=== PATIENT | female | born 1960 | race Caucasian/White ===

== ENCOUNTER → 2016-06-17 | Outpatient (CLI) | payer OTHER ==
--- NOTE | 2016-06-18 11:07 | MM ---
Reason for exam: screening (asymptomatic). Last mammogram was performed 2 years and 1 month ago. History: Patient is postmenopausal and has history of breast cancer at age 32. Lumpectomy, 1993. Mastectomy of the right breast, 1993. Chemotherapy, 1993. TRAM Reconstruction of the right breast, 1993. Took hormonal contraceptives for 2 years. Took antineoplastic for 5 years. Physical Findings: A clinical breast exam by your physician is recommended on an annual basis and results should be correlated with mammographic findings. MG Screening Mammo w CAD Bilateral CC and MLO view(s) were taken. Prior study comparison: May 17, 2014, bilateral MG screening mammo w CAD. June 26, 2011, mammogram, performed at [facility]. The breast tissue is almost entirely fat. Benign calcifications. There is no discrete abnormality. No significant new findings when compared with previous films. ASSESSMENT: Benign, BI-RAD 2 RECOMMENDATION: Routine screening mammogram of both breasts in 1 year.
== END | disposition home or self-care (01) ==
LOC: RADMAMWWP 16:27
PROVIDERS: ATTEND Family Medicine
DX: Z12.31 Encounter for screening mammogram for malignant neoplasm of breast (principal)

== ENCOUNTER → 2017-11-14 | Outpatient (CLI) | payer OTHER ==
--- NOTE | 2017-11-17 11:25 | MM ---
Reason for exam: screening (asymptomatic). Last mammogram was performed 1 year and 5 months ago. History: Patient is postmenopausal and has history of breast cancer at age 32. Lumpectomy, 1993. Mastectomy of the right breast, 1993. Chemotherapy, 1993. TRAM Reconstruction of the right breast, 1993. Took hormonal contraceptives for 2 years. Took antineoplastic for 5 years. Physical Findings: A clinical breast exam by your physician is recommended on an annual basis and results should be correlated with mammographic findings. MG Screening Mammo w CAD Bilateral CC and MLO view(s) were taken. Technologist: RT Diane (R)(M) Prior study comparison: June 17, 2016, bilateral MG screening mammo w CAD. May 17, 2014, bilateral MG screening mammo w CAD. The breast tissue is almost entirely fat. Benign calcifications bilaterally. Previous mammotome biopsy in the right breast. ASSESSMENT: Benign, BI-RAD 2 RECOMMENDATION: Routine screening mammogram of both breasts in 1 year.
== END | disposition home or self-care (01) ==
LOC: RADMAMWWP 08:25
PROVIDERS: ATTEND Family Medicine
DX: Z12.31 Encounter for screening mammogram for malignant neoplasm of breast (principal)
CPT/HCPCS: 77067

== ENCOUNTER 2017-12-11 10:04 | Emergency (ER) | payer OTHER ==
[2017-12-11] MEDS ORDERED: SODIUM CHLORIDE 0.9% 500 ML 500 ML IV STA (10:34)
[2017-12-11] MEDS ORDERED: SODIUM CHLORIDE 0.9% 1,000 ML IV ONE (10:44)
[2017-12-11] MEDS ORDERED: KETOROLAC 30 MG/ML 1 ML VIAL IVP STA (10:45)
--- NOTE | 2017-12-11 10:46 | ED ---
Abdominal Pain HPI - General Chief Complaint: Abdominal Pain Stated Complaint: Abdominal pain, blood in urine Time Seen by Provider: 12/11/17 10:22 Source: patient, RN notes reviewed Mode of arrival: ambulatory Limitations: no limitations - History of Present Illness Initial Comments: 49-year-old female presents emergency Department chief complaint of right-sided abdominal pain. Patient states his started around 2:30 AM. States that he woke up out of her sleep. Patient states that she's thought she needed to have a bowel movement states that she went with no relief of her symptoms. She states nothing makes the pain feel better or worse. She denies any nausea vomiting. She has noticed some hematuria with no dysuria denies any vaginal bleeding or vaginal discharge. Patient has had prior cholecystectomy but has had no prior appendectomy. Has no history kidney stones. Patient has not taken any medications to see if it improves his symptoms. - Related Data Home Medications Medication Instructions Recorded Confirmed Aspirin 325 mg PO DAILY 10/20/15 12/11/17 Carvedilol [Coreg*] 12.5 mg PO BID 10/20/15 12/11/17 Hydrochlorothiazide 25 mg PO QAM 10/20/15 12/11/17 Lisinopril [Zestril] 5 mg PO QAM 10/20/15 12/11/17 metFORMIN HCL [Glucophage Xr] 1,000 mg PO HS 10/20/15 12/11/17 Atorvastatin [Lipitor] 80 mg PO HS 07/17/16 12/11/17 FLUoxetine HCL [PROzac] 10 mg PO DAILY 07/17/16 12/11/17 metFORMIN HCL [Metformin HCl] 500 mg PO QAM 07/17/16 12/11/17 Previous Rx's Medication Instructions Recorded Ketorolac [Toradol] 10 mg PO Q8HR #15 tab 12/11/17 Ondansetron Odt [Zofran Odt] 4 mg PO Q8HR PRN #10 tab 12/11/17 Tamsulosin [Flomax] 0.4 mg PO DAILY #7 cap 12/11/17 Allergies Allergy/AdvReac Type Severity Reaction Status Date / Time Penicillins Allergy Anaphylaxis Verified 12/11/17 12:27 Review of Systems ROS Statement: Those systems with pertinent positive or pertinent negative responses have been documented in the HPI. ROS Other: All systems not noted in ROS Statement are negative. Past Medical History Past Medical History: Cancer, Heart Failure, Diabetes Mellitus, Hyperlipidemia, Hypertension Additional Past Medical History / Comment(s): hx breast ca. pelvic pain History of Any Multi-Drug Resistant Organisms: None Reported Past Surgical History: Breast Surgery, Cholecystectomy, Heart Catheterization, Orthopedic Surgery Additional Past Surgical History / Comment(s): rt mastectomy, ORIF RT ANKLE Past Anesthesia/Blood Transfusion Reactions: Previous Problems w/ Anesthesia Additional Past Anesthesia/Blood Transfusion Reaction / Comment(s): hard time waking up Past Psychological History: No Psychological Hx Reported Smoking Status: Never smoker Past Alcohol Use History: None Reported Past Drug Use History: None Reported - Past Family History Daughter(s) Family Medical History: Cancer Additional Family Medical History / Comment(s): non hodgkins lymphoma Father Family Medical History: Deep Vein Thrombosis (DVT) General Exam Limitations: no limitations General appearance: alert, in no apparent distress Head exam: Present: atraumatic, normocephalic, normal inspection Neck exam: Present: normal inspection. Absent: tenderness, meningismus, lymphadenopathy Respiratory exam: Present: normal lung sounds bilaterally. Absent: respiratory distress, wheezes, rales, rhonchi, stridor Cardiovascular Exam: Present: regular rate, normal rhythm, normal heart sounds. Absent: systolic murmur, diastolic murmur, rubs, gallop, clicks GI/Abdominal exam: Present: soft, tenderness (Mild right lower quadrant tenderness), normal bowel sounds. Absent: distended, guarding, rebound, rigid Back exam: Absent: CVA tenderness (R), CVA tenderness (L) Skin exam: Present: warm, dry, intact, normal color. Absent: rash Course Vital Signs 12/11/17 10:12 Temperature 98.5 F Pulse Rate 78 Respiratory 20 Rate Blood Pressure 151/85 O2 Sat by Pulse 98 Oximetry Medical Decision Making - Medical Decision Making 57-year-old female presents emergency Department for right-sided abdominal pain. Patient had lab work urinalysis and CT which shows evidence of 4 mm ureteral calculi stone. Patient has normal renal function no signs of infection. She does have a lesion on her pelvis though felt not to be metastasis though she does have a history of breast cancer will follow-up for bone scan. - Lab Data Result diagrams: 12/11/17 11:15 12/11/17 11:15 Lab Results 10/12/11/17 12/11/17 Range/Units 11:15 11:15 11:15 WBC 7.4 (3.8-10.6) k/uL RBC 4.47 (3.80-5.40) m/uL Hgb 13.1 (11.4-16.0) gm/dL Hct 38.6 (34.0-46.0) % MCV 86.5 (80.0-100.0) fL MCH 29.2 (25.0-35.0) pg MCHC 33.8 (31.0-37.0) g/dL RDW 13.0 (11.5-15.5) % Plt Count 255 (150-450) k/uL Neutrophils % 69 % Lymphocytes % 23 % Monocytes % 5 % Eosinophils % 2 % Basophils % 0 % Neutrophils # 5.1 (1.3-7.7) k/uL Lymphocytes # 1.7 (1.0-4.8) k/uL Monocytes # 0.3 (0-1.0) k/uL Eosinophils # 0.1 (0-0.7) k/uL Basophils # 0.0 (0-0.2) k/uL Sodium 140 (137-145) mmol/L Potassium 3.9 (3.5-5.1) mmol/L Chloride 104 (98-107) mmol/L Carbon Dioxide 26 (22-30) mmol/L Anion Gap 10 mmol/L BUN 19 H (7-17) mg/dL Creatinine 0.48 L (0.52-1.04) mg/dL Est GFR (CKD-EPI)AfAm >90 (>60 ml/min/1.73 sqM) Est GFR (CKD-EPI)NonAf >90 (>60 ml/min/1.73 sqM) Glucose 132 H (74-99) mg/dL Calcium 9.8 (8.4-10.2) mg/dL Total Bilirubin 0.7 (0.2-1.3) mg/dL AST 26 (14-36) U/L ALT 39 (9-52) U/L Alkaline Phosphatase 90 (38-126) U/L Total Protein 7.1 (6.3-8.2) g/dL Albumin 4.2 (3.5-5.0) g/dL Amylase 71 (30-110) U/L Lipase 235 (23-300) U/L Urine Color Yellow Urine Appearance Clear (Clear) Urine pH 5.5 (5.0-8.0) Ur Specific Denhoff 1.016 (1.001-1.035) Urine Protein 1+ H (Negative) Urine Glucose (UA) Negative (Negative) Urine Ketones Negative (Negative) Urine Blood Large H (Negative) Urine Nitrite Negative (Negative) Urine Bilirubin Negative (Negative) Urine Urobilinogen <2.0 (<2.0) mg/dL Ur Leukocyte Esterase Negative (Negative) Urine RBC >182 H (0-5) /hpf Urine WBC 2 (0-5) /hpf Ur Squamous Epith Cells 1 (0-4) /hpf Urine Mucus Rare H (None) /hpf Disposition Clinical Impression: Ureteral calculi, Right flank pain Disposition: HOME SELF-CARE Condition: Stable Instructions: Kidney Stones (ED) Additional Instructions: Please return to the Emergency Department if symptoms worsen or any other concerns. Prescriptions: Ketorolac [Toradol] 10 mg PO Q8HR #15 tab Ondansetron Odt [Zofran Odt] 4 mg PO Q8HR PRN #10 tab PRN Reason: Nausea Tamsulosin [Flomax] 0.4 mg PO DAILY #7 cap Is patient prescribed a controlled substance at d/c from ED?: No Referrals: Amanda Pradhan DO [Primary Care Provider] - 1-2 days Deandre Harkins MD [STAFF PHYSICIAN] - 1-2 days Time of Disposition: 12:46
[2017-12-11 11:32] LABS: Basophils % (A) 0 %; Eosinophils # (A) 0.1 k/uL (0-0.7); Eosinophils % (A) 2 %; HCT 38.6 % (34.0-46.0); HGB 13.1 gm/dL (11.4-16.0); Lymphocytes # (A) 1.7 k/uL (1.0-4.8); Lymphocytes % (A) 23 %; MCH 29.2 pg (25.0-35.0); MCHC 33.8 g/dL (31.0-37.0); MCV 86.5 fL (80.0-100.0); Mean Platelet Volume 7.2; Monocytes # (A) 0.3 k/uL (0-1.0); Monocytes % (A) 5 %; Neutrophils # (A) 5.1 k/uL (1.3-7.7); Neutrophils % (A) 69 %; Platelet Count 255 k/uL (150-450); RBC 4.47 m/uL (3.80-5.40); WBC 7.4 k/uL (3.8-10.6)
[2017-12-11 11:45] LABS: ALT 39 U/L (9-52); AST 26 U/L (14-36); Albumin 4.2 g/dL (3.5-5.0); Alkaline Phosphatase 90 U/L (38-126); Amylase 71 U/L (30-110); Anion Gap 10 mmol/L; Blood Urea Nitrogen 19 mg/dL (7-17); Calcium 9.8 mg/dL (8.4-10.2); Carbon Dioxide 26 mmol/L (22-30); Chloride 104 mmol/L (98-107); Glucose 132 mg/dL (74-99); Lipase 235 U/L (23-300); Potassium 3.9 mmol/L (3.5-5.1); Sodium 140 mmol/L (137-145); Total Bilirubin 0.7 mg/dL (0.2-1.3); Total Protein 7.1 g/dL (6.3-8.2)
[2017-12-11 11:54] LABS: Appearance,Urine Clear (Clear); Bilirubin,Urine Negative (Negative); Blood,Urine Large (Negative); Color,Urine Yellow; Glucose,Urine (UA) Negative (Negative); Ketones,Urine Negative (Negative); Leukocyte Esterase,Urine Negative (Negative); Mucus,Urine Rare /hpf; Nitrite,Urine Negative (Negative); PH, Urine 5.5 (5.0-8.0); Protein,Urine 1+ (Negative); RBC,Urine >182 /hpf (0-5); Specific Gravity,Urine 1.016 (1.001-1.035); Squamous Epithelial Cell,Urine 1 /hpf (0-4); Urobilinogen,Urine <2.0 mg/dL (<2.0); WBC,Urine 2 /hpf (0-5)
--- NOTE | 2017-12-11 12:00 | XR ---
EXAMINATION TYPE: XR KUB DATE OF EXAM: 12/11/2017 CLINICAL DATA: 57-year-old female with abdominal pain, PHH COMPARISON: None FINDINGS: Lung bases are clear. Surgical clips are noted in the right upper quadrant, left mid abdomen, and in the right paramedian l ower abdomen. No evidence for free intraperitoneal air. No dilated small bowel or air-fluid levels. Scattered air and stool seen throughout the colon extendi ng distally into the rectum. Mild to moderate overall stool burden. Possible 5 mm left renal calculus versus bowel content. IMPRESSION: 1. Mild to moderate stool burden.No evidence of bowel obstruction or free intraperitoneal air. 2. Possible 5 mm nonobstructive left renal calculus.
--- NOTE | 2017-12-11 12:41 | CT ---
EXAMINATION TYPE: CT abdomen pelvis wo con DATE OF EXAM: 12/11/2017 COMPARISON: None HISTORY: Blood in urine CT DLP: 694.8 mGycm Automated exposure control for dose reduction was used. TECHNIQUE: Helical acquisition of images was performed from the lung bases through the pelvis. FINDINGS: LUNG BASES: There is partial visualization of bibasilar atelectasis and coronary calcifications as we ll as trace pericardial fluid and a small hiatal hernia. LIVER/GB: No significant abnormality is appreciated within the unenhanced liver. Gallbladder is eithe r significantly contracted or surgically absent and not visualized. PANCREAS: No significant abnormality is seen. SPLEEN: No significant abnormality is seen. ADRENALS: No significant abnormality is seen. KIDNEYS: There are multiple bilateral renal calculi. On the left there are at least 5 calculi with th e largest in the midpole measuring up to 7 mm and on the right there are at least 2 renal calculi jadiel suring 1 to 2 mm each. Additionally there is a proximal right ureteral calculus creating obstructive uropathy and mild right hydroureteronephrosis and perinephric fat stranding. No perinephric fluid col lection is seen. This obstructing calculus measures 4 mm. No urinary bladder calculi are present. Uri nary bladder is decompressed. ADENOPATHY: No greater than 1 cm short axis with nodes are seen within the abdomen or pelvis. OSSEOUS STRUCTURES: Moderate multilevel degenerative change of the spine. Nonspecific sclerosis of t he left iliac bone on image 111 measures a maximum dimension of 1.9 cm. There is a grade 1 anterolist hesis of L4 and L5. BOWEL: Scattered colonic diverticula are seen throughout the entirety of the colon. Moderate amount retained colonic stool is seen. No dilated large or small bowel to suggest obstruction. Appendix is a ir-filled and within normal limits. OTHER: There are multiple metallic densities along the abdominal wall and one within the peritoneum o n image 63, from prior TRAM flap reconstruction as the left rectus abdominis is absent. Abdominal aorta is of normal course and caliber with moderate calcific atheromatous changes. There ar e small bilateral fat filled inguinal hernias. No abutting bowel. IMPRESSION: 1. MILD RIGHT HYDROURETERONEPHROSIS SECONDARY TO AN OBSTRUCTING PROXIMAL URETERAL 4 MM CALCULUS. ROSE TIONAL BILATERAL NONOBSTRUCTING RENAL CALCULI MEASURE UP TO 7 MM ON THE LEFT. 2. NONSPECIFIC SCLEROTIC LESION OF THE LEFT ILIAC BONE. ALTHOUGH METASTASIS IS NOT SUSPECTED GIVEN TH E PATIENT'S REMOTE HISTORY OF BREAST CANCER BONE SCAN COULD BE PERFORMED OR CORRELATION WITH ANY PRIO R OUTSIDE IMAGING TO DETERMINE STABILITY.
[2017-12-11] MEDS ORDERED: ACET/COD 300 MG/30 MG STARTER PACK 6 TAB BTL PO STA (12:45)
[2017-12-11 13:28] VITALS: BP 146/86; PULSE 66; RESP 18; TEMP 97.8
== END 2017-12-11 13:28 | disposition home or self-care (01) ==
LOC: EC 10:04
DX: N20.1 Calculus of ureter (principal); R19.07 Generalized intra-abdominal and pelvic swelling, mass and lump; E78.5 Hyperlipidemia, unspecified; I11.0 Hypertensive heart disease with heart failure; I50.9 Heart failure, unspecified; E11.9 Type 2 diabetes mellitus without complications; Z88.0 Allergy status to penicillin; Z79.82 Long term (current) use of aspirin; Z79.84 Long term (current) use of oral hypoglycemic drugs; Z79.899 Other long term (current) drug therapy; Z85.3 Personal history of malignant neoplasm of breast; Z90.11 Acquired absence of right breast and nipple; Z90.49 Acquired absence of other specified parts of digestive tract
CPT/HCPCS: 99284; 96374; 96361; 36415; 80053; 82150; 83690; 85025; 81001; 87086; 74018; 74176; J1885

== ENCOUNTER 2018-01-02 06:57 | Emergency (ER) | payer OTHER ==
[2018-01-02 07:02] VITALS: TEMP 98.5
[2018-01-02] MEDS ORDERED: SODIUM CHLORIDE 0.9% 500 ML 500 ML IV ONE (07:31)
[2018-01-02] MEDS ORDERED: DEXAMETHASONE SOD PHOSPHATE 10 MG/ML 1 ML VIAL IV STA (07:31)
--- NOTE | 2018-01-02 07:34 | ED ---
General Adult HPI - General Chief complaint: Allergic Reaction Stated complaint: Allergic Reaction, difficulty breathing Time Seen by Provider: 01/02/18 07:05 Source: patient, family, RN notes reviewed, old records reviewed Mode of arrival: ambulatory Limitations: no limitations - History of Present Illness Initial comments: 57-year-old female presents for evaluation of sore throat and swelling. Patient states she had a mild sore throat yesterday, this progressed today to sore throat with some difficulty swallowing. She also has had nasal congestion. Mild cough. No fever or chills. Patient has past medical history of diabetes. She thought this was related to her Flomax which she took last night. However she's been on this medication for several months. No lip or tongue swelling. - Related Data Home Medications Medication Instructions Recorded Confirmed Aspirin 325 mg PO DAILY 10/20/15 01/02/18 Carvedilol [Coreg*] 12.5 mg PO BID 10/20/15 01/02/18 Hydrochlorothiazide 25 mg PO QAM 10/20/15 01/02/18 Lisinopril [Zestril] 5 mg PO QAM 10/20/15 01/02/18 Atorvastatin [Lipitor] 80 mg PO HS 07/17/16 01/02/18 FLUoxetine HCL [PROzac] 10 mg PO HS 07/17/16 01/02/18 metFORMIN HCL [Metformin HCl] 500 mg PO QAM 07/17/16 01/02/18 Tamsulosin [Flomax] 0.4 mg PO HS 01/02/18 01/02/18 metFORMIN HCL 1,000 mg PO HS 01/02/18 01/02/18 Previous Rx's Medication Instructions Recorded Loratadine [Claritin] 10 mg PO DAILY #30 tab 01/02/18 methylPREDNISolone Dose Pack 4 mg PO DIRECTED #21 package 01/02/18 [Medrol Dose Pack] Allergies Allergy/AdvReac Type Severity Reaction Status Date / Time Penicillins Allergy Anaphylaxis Verified 01/02/18 08:16 Review of Systems ROS Statement: Those systems with pertinent positive or pertinent negative responses have been documented in the HPI. ROS Other: All systems not noted in ROS Statement are negative. Past Medical History Past Medical History: Cancer, Heart Failure, Diabetes Mellitus, Hyperlipidemia, Hypertension Additional Past Medical History / Comment(s): hx breast ca. pelvic pain History of Any Multi-Drug Resistant Organisms: None Reported Past Surgical History: Breast Surgery, Cholecystectomy, Heart Catheterization, Orthopedic Surgery Additional Past Surgical History / Comment(s): rt mastectomy, ORIF RT ANKLE Past Anesthesia/Blood Transfusion Reactions: Previous Problems w/ Anesthesia Additional Past Anesthesia/Blood Transfusion Reaction / Comment(s): hard time waking up Past Psychological History: No Psychological Hx Reported Smoking Status: Never smoker Past Alcohol Use History: None Reported Past Drug Use History: None Reported - Past Family History Daughter(s) Family Medical History: Cancer Additional Family Medical History / Comment(s): non hodgkins lymphoma Father Family Medical History: Deep Vein Thrombosis (DVT) General Exam Limitations: no limitations General appearance: alert, in no apparent distress Head exam: Present: atraumatic, normocephalic Eye exam: Present: normal appearance, PERRL ENT exam: Present: other (Pharyngeal erythema and some swelling bilaterally, no tonsillar exudate. No asymmetry to the oropharynx. Uvula midline) Neck exam: Present: lymphadenopathy (Bilateral anterior cervical) Respiratory exam: Present: normal lung sounds bilaterally. Absent: respiratory distress, wheezes Cardiovascular Exam: Present: regular rate, normal rhythm GI/Abdominal exam: Present: soft. Absent: distended, tenderness Extremities exam: Present: normal inspection, normal capillary refill. Absent: pedal edema Neurological exam: Present: alert, oriented X3 Psychiatric exam: Present: normal affect, normal mood Skin exam: Present: warm, dry, intact. Absent: cyanosis, diaphoretic Course Vital Signs 01/02/18 06:58 Temperature 98.5 F Pulse Rate 69 Respiratory 20 Rate Blood Pressure 146/88 O2 Sat by Pulse 96 Oximetry - Reevaluation(s) Reevaluation #1: 01/02/18 09:52 Patient's symptoms improved, sore throat improved, no respiratory distress, stable vitals. Medical Decision Making - Medical Decision Making 49-year-old female with sore throat and nasal congestion. Patient initially thought sore throat may be related to Flomax. This does not seem ALLERGIC in nature. This seems like upper respiratory tract infection. She does have significant bilateral oral pharyngeal erythema, uvula is midline. No stridor. No respiratory distress. No drooling. Lungs are clear. Laboratory studies were obtained, these are normal, normal CBC, normal CMP. She will be started on Medrol Dosepak and Claritin. She will return with development of fever, or worsening symptoms. - Lab Data Result diagrams: 01/02/18 07:45 01/02/18 07:45 Lab Results 01/02/18 01/02/18 Range/Units 07:45 07:45 WBC 4.7 (3.8-10.6) k/uL RBC 4.39 (3.80-5.40) m/uL Hgb 12.6 (11.4-16.0) gm/dL Hct 38.0 (34.0-46.0) % MCV 86.5 (80.0-100.0) fL MCH 28.6 (25.0-35.0) pg MCHC 33.1 (31.0-37.0) g/dL RDW 13.1 (11.5-15.5) % Plt Count 278 (150-450) k/uL Neutrophils % 60 % Lymphocytes % 29 % Monocytes % 6 % Eosinophils % 3 % Basophils % 0 % Neutrophils # 2.8 (1.3-7.7) k/uL Lymphocytes # 1.4 (1.0-4.8) k/uL Monocytes # 0.3 (0-1.0) k/uL Eosinophils # 0.2 (0-0.7) k/uL Basophils # 0.0 (0-0.2) k/uL Sodium 141 (137-145) mmol/L Potassium 3.8 (3.5-5.1) mmol/L Chloride 105 (98-107) mmol/L Carbon Dioxide 27 (22-30) mmol/L Anion Gap 9 mmol/L BUN 20 H (7-17) mg/dL Creatinine 0.48 L (0.52-1.04) mg/dL Est GFR (CKD-EPI)AfAm >90 (>60 ml/min/1.73 sqM) Est GFR (CKD-EPI)NonAf >90 (>60 ml/min/1.73 sqM) Glucose 147 H (74-99) mg/dL Calcium 9.3 (8.4-10.2) mg/dL Total Bilirubin 0.8 (0.2-1.3) mg/dL AST 26 (14-36) U/L ALT 37 (9-52) U/L Alkaline Phosphatase 87 (38-126) U/L Total Protein 6.6 (6.3-8.2) g/dL Albumin 3.8 (3.5-5.0) g/dL Disposition Clinical Impression: Pharyngitis, Upper respiratory infection Disposition: HOME SELF-CARE Condition: Good Instructions: Pharyngitis (ED) Prescriptions: Loratadine [Claritin] 10 mg PO DAILY #30 tab methylPREDNISolone Dose Pack [Medrol Dose Pack] 4 mg PO DIRECTED #21 package Is patient prescribed a controlled substance at d/c from ED?: No Referrals: Amanda Pradhan DO [Primary Care Provider] - 1-2 days Time of Disposition: 09:54
[2018-01-02 08:08] LABS: Basophils % (A) 0 %; Eosinophils # (A) 0.2 k/uL (0-0.7); Eosinophils % (A) 3 %; HGB 12.6 gm/dL (11.4-16.0); Lymphocytes # (A) 1.4 k/uL (1.0-4.8); Lymphocytes % (A) 29 %; MCH 28.6 pg (25.0-35.0); MCHC 33.1 g/dL (31.0-37.0); MCV 86.5 fL (80.0-100.0); Mean Platelet Volume 6.9; Monocytes # (A) 0.3 k/uL (0-1.0); Monocytes % (A) 6 %; Neutrophils # (A) 2.8 k/uL (1.3-7.7); Neutrophils % (A) 60 %; Platelet Count 278 k/uL (150-450); RBC 4.39 m/uL (3.80-5.40); RDW 13.1 % (11.5-15.5); WBC 4.7 k/uL (3.8-10.6)
[2018-01-02 08:22] LABS: ALT 37 U/L (9-52); AST 26 U/L (14-36); Albumin 3.8 g/dL (3.5-5.0); Alkaline Phosphatase 87 U/L (38-126); Anion Gap 9 mmol/L; Blood Urea Nitrogen 20 mg/dL (7-17); Calcium 9.3 mg/dL (8.4-10.2); Carbon Dioxide 27 mmol/L (22-30); Chloride 105 mmol/L (98-107); Glucose 147 mg/dL (74-99); Potassium 3.8 mmol/L (3.5-5.1); Sodium 141 mmol/L (137-145); Total Bilirubin 0.8 mg/dL (0.2-1.3); Total Protein 6.6 g/dL (6.3-8.2)
[2018-01-02 09:53] VITALS: BP 116/80
[2018-01-02 10:16] VITALS: PULSE 76; RESP 16
== END 2018-01-02 10:16 | disposition home or self-care (01) ==
LOC: EC 06:57
DX: J02.9 Acute pharyngitis, unspecified (principal); E78.5 Hyperlipidemia, unspecified; I11.0 Hypertensive heart disease with heart failure; I50.9 Heart failure, unspecified; E11.9 Type 2 diabetes mellitus without complications; Z79.82 Long term (current) use of aspirin; Z79.84 Long term (current) use of oral hypoglycemic drugs; Z79.899 Other long term (current) drug therapy; Z88.0 Allergy status to penicillin; Z85.3 Personal history of malignant neoplasm of breast; Z90.11 Acquired absence of right breast and nipple; Z95.818 Presence of other cardiac implants and grafts
CPT/HCPCS: 36415; 80053; 85025; 99284; 96374; 96361; J1100

== ENCOUNTER → 2019-02-04 | Outpatient (CLI) | payer OTHER ==
--- NOTE | 2019-02-08 08:55 | MM ---
Reason for exam: screening (asymptomatic). Last mammogram was performed 1 year and 3 months ago. History: Patient is postmenopausal and has history of breast cancer at age 32. Lumpectomy, 1993. Mastectomy of the right breast, 1993. Chemotherapy, 1993. TRAM Reconstruction of the right breast, 1993. Took hormonal contraceptives for 2 years. Took antineoplastic for 5 years. Physical Findings: A clinical breast exam by your physician is recommended on an annual basis and results should be correlated with mammographic findings. MG Screening Mammo w CAD Bilateral CC and MLO view(s) were taken. Prior study comparison: November 14, 2017, bilateral MG screening mammo w CAD. June 17, 2016, bilateral MG screening mammo w CAD. There are scattered fibroglandular densities. No significant changes when compared with prior studies. ASSESSMENT: Benign, BI-RAD 2 RECOMMENDATION: Routine screening mammogram of both breasts in 1 year.
== END | disposition home or self-care (01) ==
LOC: RADMAMWWP 16:49
PROVIDERS: ATTEND Family Medicine
DX: Z12.31 Encounter for screening mammogram for malignant neoplasm of breast (principal)
CPT/HCPCS: 77067

== ENCOUNTER 2020-03-27 03:40 | Emergency (ER) | payer OTHER ==
[2020-03-27 03:50] VITALS: PULSE 76
[2020-03-27] MEDS ORDERED: SODIUM CHLORIDE 0.9% 1,000 ML IV STA ×2 (03:53)
[2020-03-27] MEDS ORDERED: PANTOPRAZOLE 40 MG/10 ML VIAL IVP STA (03:53)
[2020-03-27] MEDS ORDERED: MORPHINE SULFATE 4 MG/ML SYRINGE IV STA (03:53)
[2020-03-27] MEDS ORDERED: ONDANSETRON 4 MG/2 ML VIAL IVP STA (03:53)
--- NOTE | 2020-03-27 03:54 | ED ---
Abdominal Pain HPI - General Chief Complaint: Abdominal Pain Stated Complaint: abd pain,vomiting Time Seen by Provider: 03/27/20 03:43 Source: patient, RN notes reviewed, old records reviewed Mode of arrival: wheelchair Limitations: no limitations - History of Present Illness Initial Comments: This is a 5-year-old female DF for evaluation of severe sudden onset of right sided but bilateral flank pain severe. Patient's history of case still states this feels like her kidney stones but worse. Persistent nausea vomiting, patient having such severe pain is having trouble getting history, but the pain is causing her to vomit MD Complaint: abdominal pain, flank pain -: hour(s) Location: RLQ, suprapubic, R flank Radiation: R flank Severity: severe Severity scale (1-10): 8 Quality: stabbing Consistency: constant Improves With: nothing Worsens With: nothing Associated Symptoms: denies other symptoms, nausea, vomiting Treatments Prior to Arrival: NSAIDs - Related Data Home Medications Medication Instructions Recorded Confirmed Aspirin 325 mg PO DAILY 10/20/15 01/02/18 carvediloL [Coreg*] 12.5 mg PO BID 10/20/15 01/02/18 hydroCHLOROthiazide 25 mg PO QAM 10/20/15 01/02/18 lisinopriL [Zestril] 5 mg PO QAM 10/20/15 01/02/18 Atorvastatin [Lipitor] 80 mg PO HS 07/17/16 01/02/18 FLUoxetine HCL [PROzac] 10 mg PO HS 07/17/16 01/02/18 metFORMIN HCL [Metformin HCl] 500 mg PO QAM 07/17/16 01/02/18 Tamsulosin [Flomax] 0.4 mg PO HS 01/02/18 01/02/18 metFORMIN HCL 1,000 mg PO HS 01/02/18 01/02/18 Previous Rx's Medication Instructions Recorded Loratadine [Claritin] 10 mg PO DAILY #30 tab 01/02/18 methylPREDNISolone Dose Pack 4 mg PO DIRECTED #21 package 01/02/18 [Medrol Dose Pack] Allergies Allergy/AdvReac Type Severity Reaction Status Date / Time Penicillins Allergy Anaphylaxis Verified 03/27/20 03:50 Review of Systems ROS Statement: Those systems with pertinent positive or pertinent negative responses have been documented in the HPI. ROS Other: All systems not noted in ROS Statement are negative. Past Medical History Past Medical History: Cancer, Heart Failure, Diabetes Mellitus, Hyperlipidemia, Hypertension Additional Past Medical History / Comment(s): hx breast ca. pelvic pain History of Any Multi-Drug Resistant Organisms: None Reported Past Surgical History: Breast Surgery, Cholecystectomy, Heart Catheterization, Orthopedic Surgery Additional Past Surgical History / Comment(s): rt mastectomy, ORIF RT ANKLE Past Anesthesia/Blood Transfusion Reactions: Previous Problems w/ Anesthesia Additional Past Anesthesia/Blood Transfusion Reaction / Comment(s): hard time waking up Past Psychological History: No Psychological Hx Reported Smoking Status: Never smoker Past Alcohol Use History: None Reported Past Drug Use History: None Reported - Past Family History Daughter(s) Family Medical History: Cancer Additional Family Medical History / Comment(s): non hodgkins lymphoma Father Family Medical History: Deep Vein Thrombosis (DVT) General Exam Limitations: no limitations General appearance: alert, in no apparent distress Head exam: Present: atraumatic, normocephalic, normal inspection Eye exam: Present: normal appearance, PERRL, EOMI. Absent: scleral icterus, conjunctival injection, periorbital swelling ENT exam: Present: normal exam, mucous membranes moist Neck exam: Present: normal inspection. Absent: tenderness, meningismus, lymphadenopathy Respiratory exam: Present: normal lung sounds bilaterally. Absent: respiratory distress, wheezes, rales, rhonchi, stridor Cardiovascular Exam: Present: regular rate, normal rhythm, normal heart sounds. Absent: systolic murmur, diastolic murmur, rubs, gallop, clicks GI/Abdominal exam: Present: soft, normal bowel sounds. Absent: distended, tenderness, guarding, rebound, rigid Extremities exam: Present: normal inspection, full ROM, normal capillary refill. Absent: tenderness, pedal edema, joint swelling, calf tenderness Back exam: Present: normal inspection Neurological exam: Present: alert, oriented X3, CN II-XII intact Psychiatric exam: Present: normal affect, normal mood Skin exam: Present: warm, dry, intact, normal color. Absent: rash Course Vital Signs 03/27/20 03/27/20 03/27/20 03:45 04:03 05:26 Temperature 98 F Pulse Rate 76 76 Respiratory 18 16 Rate Blood Pressure 173/110 180/96 O2 Sat by Pulse 96 96 Oximetry - Reevaluation(s) Reevaluation #1: medical record is reviewed Patient has improvement of symptoms, continues to feel better. Patient informed results, questions answered Patient feels stable for discharge home Medical Decision Making - Medical Decision Making 59 female DF for evaluation patient Dese for evaluation of flank pain right- sided flank pain with right-sided kidney stone. Pain is controlled patient can be discharged home - Lab Data Result diagrams: 03/27/20 04:04 03/27/20 04:04 Lab Results 03/27/20 03/27/20 03/27/20 Range/Units 04:04 04:04 04:04 WBC 14.3 H (3.8-10.6) k/uL RBC 5.13 (3.80-5.40) m/uL Hgb 15.3 (11.4-16.0) gm/dL Hct 44.1 (34.0-46.0) % MCV 86.0 (80.0-100.0) fL MCH 29.8 (25.0-35.0) pg MCHC 34.6 (31.0-37.0) g/dL RDW 12.4 (11.5-15.5) % Plt Count 372 (150-450) k/uL MPV 7.1 Neutrophils % 74 % Lymphocytes % 17 % Monocytes % 6 % Eosinophils % 1 % Basophils % 1 % Neutrophils # 10.6 H (1.3-7.7) k/uL Lymphocytes # 2.4 (1.0-4.8) k/uL Monocytes # 0.9 (0-1.0) k/uL Eosinophils # 0.2 (0-0.7) k/uL Basophils # 0.1 (0-0.2) k/uL Sodium 137 (137-145) mmol/L Potassium 4.8 (3.5-5.1) mmol/L Chloride 100 (98-107) mmol/L Carbon Dioxide 25 (22-30) mmol/L Anion Gap 12 mmol/L BUN 36 H (7-17) mg/dL Creatinine 0.75 (0.52-1.04) mg/dL Est GFR (CKD-EPI)AfAm >90 (>60 ml/min/1.73 sqM) Est GFR (CKD-EPI)NonAf 87 (>60 ml/min/1.73 sqM) Glucose 250 H (74-99) mg/dL Plasma Lactic Acid [place] (0.7-2.0) mmol/L Calcium 10.6 H (8.4-10.2) mg/dL Total Bilirubin 0.5 (0.2-1.3) mg/dL AST 37 H (14-36) U/L ALT 72 H (4-34) U/L Alkaline Phosphatase 86 (38-126) U/L Troponin I (0.000-0.034) ng/mL Total Protein 7.6 (6.3-8.2) g/dL Albumin 4.5 (3.5-5.0) g/dL Amylase 142 H (30-110) U/L Lipase 667 H (23-300) U/L Urine Color Yellow Urine Appearance Cloudy H (Clear) Urine pH 6.0 (5.0-8.0) Ur Specific [place] 1.038 H (1.001-1.035) Urine Protein 3+ H (Negative) Urine Glucose (UA) Negative (Negative) Urine Ketones Negative (Negative) Urine Blood Moderate H (Negative) Urine Nitrite Negative (Negative) Urine Bilirubin Negative (Negative) Urine Urobilinogen 2.0 (<2.0) mg/dL Ur Leukocyte Esterase Trace H (Negative) Urine RBC 27 H (0-5) /hpf Urine WBC 8 H (0-5) /hpf Ur Squamous Epith Cells 22 H (0-4) /hpf Calcium Oxalate Crystal Moderate H (None) /hpf Urine Mucus Occasional H (None) /hpf 03/27/20 03/27/20 Range/Units 04:04 04:04 WBC (3.8-10.6) k/uL RBC (3.80-5.40) m/uL Hgb (11.4-16.0) gm/dL Hct (34.0-46.0) % MCV (80.0-100.0) fL MCH (25.0-35.0) pg MCHC (31.0-37.0) g/dL RDW (11.5-15.5) % Plt Count (150-450) k/uL MPV Neutrophils % % Lymphocytes % % Monocytes % % Eosinophils % % Basophils % % Neutrophils # (1.3-7.7) k/uL Lymphocytes # (1.0-4.8) k/uL Monocytes # (0-1.0) k/uL Eosinophils # (0-0.7) k/uL Basophils # (0-0.2) k/uL Sodium (137-145) mmol/L Potassium (3.5-5.1) mmol/L Chloride (98-107) mmol/L Carbon Dioxide (22-30) mmol/L Anion Gap mmol/L BUN (7-17) mg/dL Creatinine (0.52-1.04) mg/dL Est GFR (CKD-EPI)AfAm (>60 ml/min/1.73 sqM) Est GFR (CKD-EPI)NonAf (>60 ml/min/1.73 sqM) Glucose (74-99) mg/dL Plasma Lactic Acid [place] 1.8 (0.7-2.0) mmol/L Calcium (8.4-10.2) mg/dL Total Bilirubin (0.2-1.3) mg/dL AST (14-36) U/L ALT (4-34) U/L Alkaline Phosphatase (38-126) U/L Troponin I <0.012 (0.000-0.034) ng/mL Total Protein (6.3-8.2) g/dL Albumin (3.5-5.0) g/dL Amylase (30-110) U/L Lipase (23-300) U/L Urine Color Urine Appearance (Clear) Urine pH (5.0-8.0) Ur Specific [place] (1.001-1.035) Urine Protein (Negative) Urine Glucose (UA) (Negative) Urine Ketones (Negative) Urine Blood (Negative) Urine Nitrite (Negative) Urine Bilirubin (Negative) Urine Urobilinogen (<2.0) mg/dL Ur Leukocyte Esterase (Negative) Urine RBC (0-5) /hpf Urine WBC (0-5) /hpf Ur Squamous Epith Cells (0-4) /hpf Calcium Oxalate Crystal (None) /hpf Urine Mucus (None) /hpf - Radiology Data Radiology results: report reviewed (CT of the abdomen and pelvis is positive for kidney stone), image reviewed Disposition Clinical Impression: Abdominal pain, Kidney stone Disposition: HOME SELF-CARE Condition: Good Instructions (If sedation given, give patient instructions): Kidney Stones (ED) Is patient prescribed a controlled substance at d/c from ED?: No Referrals: Julio Christian MD [STAFF PHYSICIAN] - 1-2 days
[2020-03-27 04:03] VITALS: TEMP 98
[2020-03-27 04:24] LABS: Basophils # (A) 0.1 k/uL (0-0.2); Basophils % (A) 1 %; Eosinophils # (A) 0.2 k/uL (0-0.7); Eosinophils % (A) 1 %; HCT 44.1 % (34.0-46.0); HGB 15.3 gm/dL (11.4-16.0); Lymphocytes # (A) 2.4 k/uL (1.0-4.8); Lymphocytes % (A) 17 %; MCH 29.8 pg (25.0-35.0); MCHC 34.6 g/dL (31.0-37.0); Mean Platelet Volume 7.1; Monocytes # (A) 0.9 k/uL (0-1.0); Monocytes % (A) 6 %; Neutrophils # (A) 10.6 k/uL (1.3-7.7); Neutrophils % (A) 74 %; Platelet Count 372 k/uL (150-450); RBC 5.13 m/uL (3.80-5.40); RDW 12.4 % (11.5-15.5); WBC 14.3 k/uL (3.8-10.6)
[2020-03-27 04:32] LABS: Appearance,Urine Cloudy (Clear); Bilirubin,Urine Negative (Negative); Blood,Urine Moderate (Negative); Calcium Oxalate Crystals,Urine Moderate /hpf; Color,Urine Yellow; Glucose,Urine (UA) Negative (Negative); Ketones,Urine Negative (Negative); Leukocyte Esterase,Urine Trace (Negative); Mucus,Urine Occasional /hpf; Nitrite,Urine Negative (Negative); Protein,Urine 3+ (Negative); RBC,Urine 27 /hpf (0-5); Specific Gravity,Urine 1.038 (1.001-1.035); Squamous Epithelial Cell,Urine 22 /hpf (0-4); WBC,Urine 8 /hpf (0-5)
[2020-03-27 04:36] LABS: ALT 72 U/L (4-34); AST 37 U/L (14-36); African American GFR (CKD) >90 (>60 ml/min/1.73 sqM); Albumin 4.5 g/dL (3.5-5.0); Alkaline Phosphatase 86 U/L (38-126); Amylase 142 U/L (30-110); Anion Gap 12 mmol/L; Blood Urea Nitrogen 36 mg/dL (7-17); Calcium 10.6 mg/dL (8.4-10.2); Carbon Dioxide 25 mmol/L (22-30); Chloride 100 mmol/L (98-107); Glucose 250 mg/dL (74-99); Lipase 667 U/L (23-300); Non-African American GFR(CKD) 87 (>60 ml/min/1.73 sqM); Potassium 4.8 mmol/L (3.5-5.1); Sodium 137 mmol/L (137-145); Total Bilirubin 0.5 mg/dL (0.2-1.3); Total Protein 7.6 g/dL (6.3-8.2)
--- NOTE | 2020-03-27 04:42 | CT ---
EXAM: CT Abdomen and Pelvis Without Intravenous Contrast CLINICAL HISTORY: abdominal pain TECHNIQUE: Axial computed tomography images of the abdomen and pelvis without intravenous contrast. CTDI is 13.37 mGy and DLP is 757.7 mGy-cm. This CT exam was performed using one or more of the following dose reduction techniques: automated exposure control, adjustment of the mA and/or kV according to patient size, and/or use of iterative reconstruction technique. COMPARISON: 12/11/17 FINDINGS: Lung bases: Mild bilateral atelectasis or scar. Mediastinum: Small hiatal hernia. ABDOMEN: Liver: No significant abnormality. Gallbladder and bile ducts: No significant abnormality. No calcified stones. Pancreas: No significant abnormality. Spleen: No significant abnormality. Adrenals: No significant abnormality. Kidneys and ureters: 5 mm distal right ureteral calculus. Mild right hydroureteronephrosis and perinephric stranding. Bilateral renal calculi measuring up to 6 mm in an upper pole calyx of the right kidney and 6 mm in a lower pole calyx of the left kidney. Stomach and bowel: Colonic diverticulosis without focal inflammatory change. Bowel is nondilated. PELVIS: Appendix: No findings to suggest acute appendicitis. Bladder: No significant abnormality. No calcified stones. Reproductive: Unremarkable as visualized. ABDOMEN and PELVIS: Intraperitoneal space: No significant abnormality. No free air. Bones/joints: Osteopenia. No acute osseous abnormality. Degenerative changes of the spine. Soft tissues: Small fat-containing bilateral inguinal hernias. Vasculature: Aortic atherosclerosis. No abdominal aortic aneurysm. Lymph nodes: No significant abnormality. IMPRESSION: 5 mm distal right ureteral calculus. Mild right hydroureteronephrosis and perinephric stranding.
[2020-03-27] MEDS ORDERED: HYDROmorphone 1 MG/ML 1 ML SYRINGE IVP STA (04:51)
[2020-03-27] MEDS ORDERED: KETOROLAC 15 MG/ML 1 ML VIAL IVP STA (04:52)
[2020-03-27] MEDS ORDERED: IBUPROFEN 600 MG STARTER PACK 4 TAB BTL PO STA (05:04)
[2020-03-27] MEDS ORDERED: ONDANSETRON 4 MG ODT STARTER PACK 2 TAB BTL PO STA (05:04)
[2020-03-27] MEDS ORDERED: traMADol 50 MG STARTER PACK 3 TAB BTL PO STA (05:04)
[2020-03-27 05:28] VITALS: BP 180/96; RESP 16
== END 2020-03-27 05:28 | disposition home or self-care (01) ==
LOC: EC 03:40
DX: N13.2 Hydronephrosis with renal and ureteral calculous obstruction (principal); I11.0 Hypertensive heart disease with heart failure; I50.9 Heart failure, unspecified; E11.9 Type 2 diabetes mellitus without complications; E78.5 Hyperlipidemia, unspecified; Z79.82 Long term (current) use of aspirin; Z79.02 Long term (current) use of antithrombotics/antiplatelets; Z79.84 Long term (current) use of oral hypoglycemic drugs; Z79.899 Other long term (current) drug therapy; Z88.0 Allergy status to penicillin; Z85.3 Personal history of malignant neoplasm of breast; Z90.11 Acquired absence of right breast and nipple
CPT/HCPCS: 36415; 80053; 82150; 83605; 83690; 84484; 85025; 81001; 74176; 99284; 96374; 96375 ×3; 96361; J2270; J2405; J1885; S0119; C9113

== ENCOUNTER 2020-04-04 11:00 | Day surgery (SDC) | payer OTHER ==
[2020-03-31 10:37] VITALS: BMI 31.0
--- NOTE | 2020-04-03 19:54 | P.GSHP ---
History of Present Illness H&P Date: 04/03/20 58 yo female with a 5 mm stone in the mid ureter with pain and obstruction. She comes for right ureteroscopy and laser lithotripsy, possible stent. THe risks , complications and alternatives have been discussed. - Constitutional Constitutional: Denies chills, Denies fever - EENT Eyes: denies blurred vision, denies pain Ears, nose, mouth and throat: Denies headache, Denies sore throat - Cardiovascular Cardiovascular: Denies chest pain, Denies shortness of breath - Respiratory Respiratory: Denies cough, Denies 7 - Gastrointestinal Gastrointestinal: Denies abdominal pain, Denies diarrhea, Denies nausea, Denies vomiting - Genitourinary (Female) Genitourinary: Denies dysuria, Denies hematuria - Genitourinary (Male) Genitourinary: Denies dysuria, Denies hematuria - Musculoskeletal Musculoskeletal: Denies myalgias - Integumentary Integumentary: Denies pruritus, Denies rash - Neurological Neurological: Denies numbness, Denies weakness - Psychiatric Psychiatric: Denies anxiety, Denies depression - Endocrine Endocrine: Denies fatigue, Denies weight change Past Medical History Past Medical History: Cancer, Heart Failure, Diabetes Mellitus, Hyperlipidemia, Hypertension Additional Past Medical History / Comment(s): hx breast ca. pelvic pain, kidney stones, abdominal pain with vomiting History of Any Multi-Drug Resistant Organisms: None Reported Past Surgical History: Breast Surgery, Cholecystectomy, Heart Catheterization, Orthopedic Surgery Additional Past Surgical History / Comment(s): rt mastectomy, ORIF RT ANKLE Past Anesthesia/Blood Transfusion Reactions: Previous Problems w/ Anesthesia, Motion Sickness Additional Past Anesthesia/Blood Transfusion Reaction / Comment(s): hard time waking up Smoking Status: Never smoker - Past Family History Daughter(s) Family Medical History: Cancer Additional Family Medical History / Comment(s): non hodgkins lymphoma Father Family Medical History: Deep Vein Thrombosis (DVT) Medications and Allergies Home Medications Medication Instructions Recorded Confirmed Type Aspirin 325 mg PO DAILY 10/20/15 03/31/20 History carvediloL [Coreg*] 12.5 mg PO BID 10/20/15 03/31/20 History hydroCHLOROthiazide 25 mg PO QAM 10/20/15 03/31/20 History lisinopriL [Zestril] 5 mg PO QAM 10/20/15 03/31/20 History FLUoxetine HCL [PROzac] 10 mg PO HS 07/17/16 03/31/20 History metFORMIN HCL [Metformin HCl] 500 mg PO QAM 07/17/16 03/31/20 History metFORMIN HCL 1,000 mg PO HS 01/02/18 03/31/20 History Rosuvastatin [Crestor] 10 mg PO DAILY 03/31/20 03/31/20 History Allergies Allergy/AdvReac Type Severity Reaction Status Date / Time Penicillins Allergy Anaphylaxis Verified 03/31/20 10:26 Surgical - Exam - General well developed, well nourished, no distress - Eyes PERRL - ENT no hearing loss - Neck no masses - Respiratory normal expansion, normal respiratory effort - Cardiovascular Rhythm: regular - Abdomen Abdomen: soft, non tender - Integumentary no rash, no growths - Neurologic normal coordination, normal sensation - Musculoskeletal normal gait, normal posture - Psychiatric oriented to time, oriented to person, speech is normal, memory intact Results - Imaging CT scan - abdomen: report reviewed, image reviewed CT scan - pelvis: report reviewed, image reviewed Assessment and Plan Assessment: Impression: Right ureteral stone with colic Plan: Right ureteroscopy with laser lithotripsy, possible stent
[~2020-04-04 11:00] MED LIST: CLINDAMYCIN 900 MG in DEXTROSE 5% IN WATER 50 ML IVPB PRN; DEXAMETHASONE SOD PHOSPHATE 4 MG/ML 1 ML VIAL IV ONE; HYDROmorphone 0.5 MG/0.5 ML SYRINGE IVP PRN; LACTATED RINGERS 1,000 ML IV SCH; MIDAZOLAM 2 MG/2 ML VIAL IV PRN; ONDANSETRON 4 MG/2 ML VIAL IVP ONE; SCOPOLAMINE 1.5MG/72HR PATCH TRANSDERM ONE
[2020-04-04 11:37] LABS: Glucose,Whole Blood 185 mg/dL (75-99)
--- NOTE | 2020-04-04 11:43 | XR ---
EXAMINATION TYPE: XR KUB DATE OF EXAM: 04/04/2020 11:29 AM CLINICAL HISTORY: Kidney stones TECHNIQUE: Two Upright KUB images of the abdomen are obtained. COMPARISON: CT 8 days ago. FINDINGS: Roughly 2-3 scattered left renal calculi redemonstrated. Single dominant 6 mm calculus uppe r to mid pole of the right kidney redemonstrated. There is 6 mm round calcification over the right pu bic symphysis probable corresponding to distal ureter calculus. Surgical clips throughout the left abdomen redemonstrated. Surgical clips throughout the lower right breast redemonstrated. Multilevel spurring in the spine. No free air. Lung bases remain clear. Paucit y of bowel gas without suspicious dilatation IMPRESSION: As above.
[2020-04-04] MEDS ORDERED: PROPOFOL 10 MG/ML 20 ML VIAL IV ONE (12:34)
[2020-04-04] MEDS ORDERED: fentaNYL (PF) 50 MCG/ML 2 ML AMP ONE (12:34)
[2020-04-04] MEDS ORDERED: SUCCINYLCHOLINE CHLORIDE 100 MG/5 ML SYR IV ONE (12:34)
[2020-04-04] MEDS ORDERED: MIDAZOLAM 2 MG/2 ML VIAL ONE (12:34)
[2020-04-04] MEDS ORDERED: LIDOCAINE 1% INJ 10MG/ML (20 ML MDV) ONE (12:34)
[2020-04-04 13:31] VITALS: RESP 16; TEMP 97
--- NOTE | 2020-04-04 13:38 | P.OP ---
Date of Procedure: 04/04/20 Preoperative Diagnosis: Right ureteral calculus Postoperative Diagnosis: Same Procedure(s) Performed: Cystoscopy, right ureteroscopy with laser lithotripsy, placement of [id number] stent Anesthesia: ARTIS Surgeon: Placido Gordon Estimated Blood Loss (ml): 0 Pathology: other (Stone) Condition: stable Disposition: PACU Indications for Procedure: The patient is 59. She has a 6-7 mm distal ureteral stone causing obstruction she come for right ureteroscopy and laser lithotripsy Description of Procedure: Patient brought to the operating suite. She was given a general endotracheal anesthesia. She's placed lithotomy position with a sterile prep and drape. The stone was seen under fluoroscopy. Cystoscopy Foroblique lens and 21-[place] sheath identifies normal urethra. Normal ureters. Normal bladder mucosa. The stone is seen under fluoroscopy. With the 7-[place] mini ureteroscope I passed this up to the stone. The stone was impacted in the intramural tunnel. With the 270 laser probe I break the stone up into tiny fragments and flush it out of the ureter. There is a moderate amount of edema where the stone was therefore double-J catheter will be placed. An 035 wires and passed through the ureteroscope up into the kidney. I move the ureteroscope and over the wires passed a 6 x 24 double-J catheter that coils in the bladder and in the renal pelvis. The bladder is drained of stony debris and sent to pathology. The patient awake and returned recovery in good condition. She tolerated procedure well. Blood loss is minimal. She'll upon recovery and found the office in one week for stent removal
[2020-04-04 13:51] LABS: Glucose,Whole Blood 159 mg/dL (75-99)
--- NOTE | 2020-04-04 13:52 | FL ---
EXAMINATION TYPE: FL guidance operating room DATE OF EXAM: 04/04/2020 CLINICAL HISTORY: Right ureter calculus TECHNIQUE: Fluoroscopy. COMPARISON: Same day abdominal x-ray. FINDINGS: Fluoroscopic guidance was provided during right stone retrieval procedure performed by Dr. Gordon. A total of 12 seconds of fluoroscopic time was utilized during the procedure and 2 spot imag es was acquired. Intraoperative images obtained show access right UVJ with guidewire extension to the right collecting system. IMPRESSION: As Above.
[2020-04-04] MEDS ORDERED: KETOROLAC 15 MG/ML 1 ML VIAL ONE (14:32)
[2020-04-04] MEDS ORDERED: KETOROLAC 15 MG/ML 1 ML VIAL IVP ONE (14:35)
[2020-04-04 14:57] VITALS: BP 101/58; PULSE 70
== END 2020-04-04 15:13 | disposition home or self-care (01) ==
LOC: OR 11:00
PROVIDERS: ATTEND Urology
DX: N13.2 Hydronephrosis with renal and ureteral calculous obstruction (principal); I11.0 Hypertensive heart disease with heart failure; I50.9 Heart failure, unspecified; E78.5 Hyperlipidemia, unspecified; E11.9 Type 2 diabetes mellitus without complications; Z88.0 Allergy status to penicillin; Z87.442 Personal history of urinary calculi; Z79.82 Long term (current) use of aspirin; Z79.84 Long term (current) use of oral hypoglycemic drugs; Z79.02 Long term (current) use of antithrombotics/antiplatelets; Z79.899 Other long term (current) drug therapy; Z85.3 Personal history of malignant neoplasm of breast; Z90.49 Acquired absence of other specified parts of digestive tract; Z90.11 Acquired absence of right breast and nipple; Z98.890 Other specified postprocedural states; Z82.49 Family history of ischemic heart disease and other diseases of the circulatory system; Z80.7 Family history of other malignant neoplasms of lymphoid, hematopoietic and related tissues
CPT/HCPCS: 82365; 74018; 52356; C2625; C1769; J2250; J2405; J2001; J3010; J1885; J0330; J2704

== ENCOUNTER → 2020-06-23 | Outpatient (CLI) | payer MEDICAID ==
--- NOTE | 2020-06-24 02:42 | MR ---
EXAMINATION TYPE: MR shoulder LT wo con DATE OF EXAM: 06/23/2020 COMPARISON: None HISTORY: Left shoulder pain with limited range of motion for 1 year. Multiplanar multiecho imaging of the left shoulder was performed without contrast. There is moderate thickening of the supraspinatus tendon with increased signal over the humeral head and at the greater tuberosity of the humerus. There is shoulder joint effusion. The subscapularis ten don is intact. The glenoid jac appear intact. The biceps tendon is intact. There is fluid around the biceps tendon. There is fluid in the subacromi al subdeltoid bursa. There is no retraction of the supraspinatus tendon. There is spurring at the AC joint without significant impingement on the supraspinatus muscle and tendon. IMPRESSION: There is shoulder joint effusion and also fluid in the subdeltoid bursa consistent with synovitis and bursitis. Significant thickening of the supraspinatus tendon consistent with severe tendinitis. No retraction. I do not see a definite full-thickness tear of the supraspinatus tendon. No fracture.
== END | disposition home or self-care (01) ==
LOC: RADMRIMAIN 18:13
PROVIDERS: ATTEND Nurse Practitioner
DX: M25.412 Effusion, left shoulder (principal)

== ENCOUNTER → 2020-08-07 | Outpatient (CLI) | payer MEDICAID ==
--- NOTE | 2020-08-09 14:01 | MM ---
Reason for exam: screening (asymptomatic). Last mammogram was performed 1 year and 6 months ago. History: Patient is postmenopausal and has history of breast cancer at age 32. Lumpectomy, 1993. Mastectomy of the right breast, 1993. Chemotherapy, 1993. TRAM Reconstruction of the right breast, 1993. Took hormonal contraceptives for 2 years. Took antineoplastic for 5 years. Physical Findings: A clinical breast exam by your physician is recommended on an annual basis and results should be correlated with mammographic findings. MG Screening Mammo w CAD Bilateral CC and MLO view(s) were taken. Prior study comparison: February 04, 2019, bilateral MG screening mammo w CAD. November 14, 2017, bilateral MG screening mammo w CAD. There are scattered fibroglandular densities. ASSESSMENT: Negative, BI-RAD 1 RECOMMENDATION: Routine screening mammogram of both breasts in 1 year.
== END | disposition home or self-care (01) ==
LOC: RADMAMWWP 16:02
PROVIDERS: ATTEND Family Medicine
DX: Z12.31 Encounter for screening mammogram for malignant neoplasm of breast (principal); Z78.0 Asymptomatic menopausal state; Z85.3 Personal history of malignant neoplasm of breast; Z90.11 Acquired absence of right breast and nipple
CPT/HCPCS: 77067

== ENCOUNTER → 2021-09-14 | Outpatient (CLI) | payer BC ==
--- NOTE | 2021-09-17 10:16 | MM ---
Reason for Exam: Screening (asymptomatic). Last mammogram was performed 1 year(s) and 1 month(s) ago. Patient History: Menarche at age 13. First Full-Term at age 20. Postmenopausal. Breast cancer, age 32. Previous chemotherapy at age 32. Patient used Hormonal Contraceptives for 2 years. 1993, Mastectomy on the Right side. 1993, Lumpectomy. 1993, TRAM Reconstruction on the right side. 1993, Chemotherapy. Prior Study Comparison: 11/14/2017 Bilateral Screening Mammogram, [facility]. 02/04/2019 Bilateral Screening Mammogram, [facility]. 08/07/2020 Bilateral Screening Mammogram, [facility]. Tissue Density: There are scattered fibroglandular densities. Findings: Analyzed By CAD. Few scattered benign round and punctate calcifications on both sides. Posttreatment and postsurgical changes right breast redemonstrated. No significant change from prior exams. Overall Assessment: Benign, BI-RAD 2 Management: Screening Mammogram of both breasts in 1 year. 1. Patient should continue monthly self breast exams. 2. A clinical breast exam by your physician is recommended on an annual basis. 3. This exam should not preclude additional follow-up of suspicious palpable abnormalities. Electronically signed and approved by: Karla Johnson M.D. Radiologist
== END | disposition home or self-care (01) ==
LOC: RADMAMWWP 14:37
PROVIDERS: ATTEND Family Medicine
DX: Z12.31 Encounter for screening mammogram for malignant neoplasm of breast (principal); Z78.0 Asymptomatic menopausal state
CPT/HCPCS: 77067

== ENCOUNTER → 2022-12-05 | Outpatient (CLI) | payer BC ==
--- NOTE | 2022-12-05 15:01 | US ---
EXAMINATION TYPE: US extremity nonvasc complete LT, MSK left knee DATE OF EXAM: 12/05/2022 COMPARISON: No radiographic correlation available CLINICAL INDICATION: Female, 62 years old with history of M25.562 pain L knee; TECHNIQUE: Multiple sonographic images along the anterior and posterior aspect of the left knee were obtained. FINDINGS: Targeted scanning along the anterior aspect of the knee show subcutaneous soft tissue swelling. Both quadriceps and patellar tendons are intact. There is a moderate underlying knee joint effusion i n the suprapatellar pouch. Additional scanning along the posterior aspect of the knee shows no Muñoz's cyst or other specific ab normality. IMPRESSION: 1. Anterior soft tissue swelling. The underlying extensor mechanism is intact. 2. However, there is a moderate knee joint effusion noted. Recommend radiographic correlation. If con cern for internal derangement, MRI can be performed. 3. Additional scanning along the posterior aspect of the knee shows no Muñoz's cyst.
--- NOTE | 2022-12-06 11:34 | MM ---
Reason for Exam: Screening (asymptomatic). Last mammogram was performed 1 year(s) and 3 month(s) ago. Patient History: Menarche at age 13. First Full-Term at age 20. Postmenopausal. Breast cancer, age 32. Previous chemotherapy at age 32. Patient used Hormonal Contraceptives for 2 years. 1993, Mastectomy on the Right side. 1993, Lumpectomy. 1993, TRAM Reconstruction on the right side. 1993, Chemotherapy. Prior Study Comparison: 02/04/2019 Bilateral Screening Mammogram, [facility]. 08/07/2020 Bilateral Screening Mammogram, [facility]. 09/14/2021 Bilateral MG screening mammo w CAD, [facility]. Tissue Density: The breast tissue is heterogeneously dense. This may lower the sensitivity of mammography. Findings: Analyzed By CAD. There is no suspicious group of microcalcifications or new suspicious mass in either breast. Overall Assessment: Benign, BI-RAD 2 Management: Screening Mammogram of both breasts in 1 year. . Patient should continue monthly self-breast exams. A clinical breast exam by your physician is recommended on an annual basis. This exam should not preclude additional follow-up of suspicious palpable abnormalities. Note on Nighat scores and lifetime risk: 1. A Nighat score greater than 3% is considered moderate risk. If this is the case, consider specialist referral to assess eligibility for a risk reducing agent. 2. If overall lifetime risk for the development of breast cancer is 20% or higher, the patient may qualify for future screening with alternating mammogram and breast MRI. Electronically signed and approved by: [place] M.D. Radiologis
== END | disposition home or self-care (01) ==
LOC: RADUSWWP 13:15
PROVIDERS: ATTEND Family Medicine
DX: Z12.31 Encounter for screening mammogram for malignant neoplasm of breast (principal); M25.462 Effusion, left knee; M25.562 Pain in left knee; Z78.0 Asymptomatic menopausal state; Z85.3 Personal history of malignant neoplasm of breast
CPT/HCPCS: 77067

== ENCOUNTER → 2024-07-02 | Outpatient (CLI) | payer MEDICARE, OTHER ==
--- NOTE | 2024-07-02 15:00 | MM ---
Reason for Exam: Screening (asymptomatic). Last mammogram was performed 1 year(s) and 7 month(s) ago. Patient History: Menarche at age 13. First Full-Term at age 20. Postmenopausal. Breast cancer, age 32. Previous chemotherapy at age 32. Patient used Hormonal Contraceptives for 2 years. 1993, Mastectomy on the Right side. 1993, Lumpectomy. 1993, TRAM Reconstruction on the right side. 1993, Chemotherapy. Prior Study Comparison: 08/07/2020 Bilateral Screening Mammogram, [facility]. 09/14/2021 Bilateral MG screening mammo w CAD, [facility]. 12/05/2022 Bilateral MG screening mammo w CAD, [facility]. Tissue Density: The breasts are almost entirely fatty. Findings: Analyzed By CAD. Right breast: There is no suspicious group of microcalcifications or new suspicious mass. Benign-appearing calcifications right breast. Left breast: There is no suspicious group of microcalcifications or new suspicious mass. Benign-appearing calcifications left breast. Overall Assessment: Benign, BI-RAD 2 Management: Screening Mammogram of both breasts in [address] [facility] will attempt to contact patient to return for supplemental views and ultrasound if indicated. Patient should continue monthly self-breast exams. A clinical breast exam by your physician is recommended on an annual basis. This exam should not preclude additional follow-up of suspicious palpable abnormalities. Note on Nighat scores and lifetime risk: 1. A Nighat score greater than 3% is considered moderate risk. If this is the case, consider specialist referral to assess eligibility for a risk reducing agent. 2. If overall lifetime risk for the development of breast cancer is 20% or higher, the patient may qualify for future screening with alternating mammogram and breast MRI. [facility], , 07/02/2024 2:56 PM. Electronically signed and approved by: Umang Cordova DO
== END | disposition home or self-care (01) ==
LOC: RADMAMWWP 14:36
PROVIDERS: ATTEND Family Medicine
DX: Z12.31 Encounter for screening mammogram for malignant neoplasm of breast (principal); R92.1 Mammographic calcification found on diagnostic imaging of breast; R92.313 Mammographic fatty tissue density, bilateral breasts; Z78.0 Asymptomatic menopausal state; Z92.0 Personal history of contraception; Z85.3 Personal history of malignant neoplasm of breast
CPT/HCPCS: 77067